=== PATIENT | male | born 1950 | race Hispanic/Latino ===

== ENCOUNTER 2018-10-06 18:55 | Emergency (ER) | payer MEDICARE, OTHER ==
[~2018-10-06] VITALS: Ht 152.4 cm; Wt 117.2 kg
[2018-10-06] MEDS ORDERED: MONTELUKAST SOD10 MG PO (19:13)
[2018-10-06] MEDS ORDERED: METFORMIN500 MG PO (19:13)
[2018-10-06] MEDS ORDERED: LOSARTAN POTASS50 MG PO (19:13)
[2018-10-06] MEDS ORDERED: AMLODIPINE5 MG PO (19:14)
[2018-10-06] MEDS ORDERED: LIPITOR20 M1 PO (19:14)
[2018-10-06] MEDS ORDERED: METOPROL TAR25 MG PO (19:14)
[2018-10-06] MEDS ORDERED: GLIMEPIRIDE2 MG PO (19:14)
[2018-10-06 22:00] VITALS: BP 156/96
== END 2018-10-06 22:50 | disposition short-term general hospital (02) ==
LOC: ED 18:55
DX: I21.4 Non-ST elevation (NSTEMI) myocardial infarction (principal); R07.9 Chest pain, unspecified; R79.89 Other specified abnormal findings of blood chemistry; E11.9 Type 2 diabetes mellitus without complications; Z79.84 Long term (current) use of oral hypoglycemic drugs; I20.9 Angina pectoris, unspecified

== ENCOUNTER → 2018-10-06 | Outpatient (REF) | payer MEDICARE, OTHER ==
[~2018-10-06] MED LIST: AMLODIPINE5 MG PO; GLIMEPIRIDE2 MG PO; LIPITOR20 M1 PO; LOSARTAN POTASS50 MG PO; METFORMIN500 MG PO; METOPROL TAR25 MG PO; MONTELUKAST SOD10 MG PO
[2018-10-06 17:13] LABS: HEMATOCRIT 42.3 % (39.0-50.0); IMMATURE GRANULOCYTES 0.5 % (0.0-5.0); MEAN CELL VOLUME 92.6 fL CALC (80.0-100.0); MEAN CORPUSCULAR HGB 30.6 pG CALC (26.0-32.0); MEAN CORPUSCULAR HGB CONC 33.1 g/L CALC (32.0-36.0); NEUT# 6.25 thou/uL (1.82-7.42); RED BLOOD COUNT 4.57 mill/uL (4.70-6.10); RED CELL DISTRI WIDTH 13.5 % (11.5-15.5)
[2018-10-06 17:24] LABS: ALBUMIN 4.8 g/dL (3.2-5.0); ALKALINE PHOSPHATASE 66 u/l (38-126); ANION GAP 17 (6-22 (CALC)); BILIRUBIN, TOTAL 0.6 mg/dL (0.0-1.4); BUN 21 mg/dL (8-23); BUN/CREATININE RATIO 19 (12-20 (CALC)); CARBON DIOXIDE 30 mmol/l (22-30); CHLORIDE 99 mmol/l (95-108); CREATININE 1.1 mg/dL (0.7-1.3); GFR > 60 ML/MIN (>=60 (CALC)); GFR FOR AFR.AMER. > 60 ML/MIN (>=60 (CALC)); POTASSIUM 4.1 mmol/l (3.5-5.1); SGOT/AST 44 u/l (19-48); SODIUM 141 mmol/l (137-146); TOTAL PROTEIN 8.5 g/dL (6.3-8.2)
== END | disposition home or self-care (01) ==
LOC: LAB 16:57
PROVIDERS: ATTEND Internal Medicine
DX: I20.9 Angina pectoris, unspecified (principal)

== ENCOUNTER 2018-10-21 18:59 | Emergency (ER) | payer MEDICARE, OTHER ==
[~2018-10-21] VITALS: Ht 177.8 cm; Wt 117.0 kg
[2018-10-21] MEDS ORDERED: ADVAIR DISK1 IN (19:27)
[2018-10-21] MEDS ORDERED: ASCORBIC ACD1000 MG PO (19:28)
[2018-10-21] MEDS ORDERED: DIGOXIN250 MCG PO (19:30)
[2018-10-21] MEDS ORDERED: ASPIRIN 81 LOW81 MG PO (19:30)
[2018-10-21] MEDS ORDERED: FAMOTIDINE40 M1 PO (19:31)
[2018-10-21] MEDS ORDERED: LASIX 40 MG TAB40 MG PO (19:32)
[2018-10-21] MEDS ORDERED: HUMALOG KW100 UNIT/M (19:33)
[2018-10-21] MEDS ORDERED: INDOMETHACIN ER75 MG PO (19:34)
[2018-10-21] MEDS ORDERED: CLEARLAX PO (19:35)
[2018-10-21] MEDS ORDERED: POTASSIUM CHLO10 ME4 PO (19:37)
[2018-10-21] MEDS ORDERED: TRESIBA FL200 UNIT/M SC (19:39)
[2018-10-21] MEDS ORDERED: ULTRAM50 MG PO (19:40)
[2018-10-21] MEDS ORDERED: APAP325 MG PO (19:43)
[2018-10-21] MEDS ORDERED: FLONASE AL50 MCG/ACT (21:06)
[2018-10-21] MEDS ORDERED: AUGMENTIN875TAB PO (21:06)
[2018-10-21 21:08] VITALS: BP 160/76
== END 2018-10-21 21:13 | disposition home or self-care (01) ==
LOC: ED 18:59
DX: H66.93 Otitis media, unspecified, bilateral (principal); J31.0 Chronic rhinitis; E11.9 Type 2 diabetes mellitus without complications; I10 Essential (primary) hypertension; I25.10 Atherosclerotic heart disease of native coronary artery without angina pectoris; Z95.1 Presence of aortocoronary bypass graft